=== PATIENT | female | born 1980 | race African-American/Black ===

== ENCOUNTER 2017-04-04 18:31 | Emergency (ER) | payer BC ==
[2017-04-04 19:05] LABS: Bilirubin Negative (Negative); Blood, Urine Trace (Negative); Clarity Clear (Clear); Glucose, Urine (Dipstick) Negative (Negative); Leukocyte Negative (Negative); Nitrite Negative (Negative); Protein, Urine (Dipstick) Negative (Neg-Trace); Urobilinogen 0.2 mg/dL (0.2-1.0); pH, Urine 6.5 (5.0-9.0)
[2017-04-04 19:08] LABS: Bacteria/HPF Rare-Few HPF (None Seen); RBC/HPF 0-3 HPF (0-3); WBC/HPF None Seen HPF (0-3)
[2017-04-04] MEDS ORDERED: Azithromycin 250 MG TAB ONE (21:11)
[2017-04-04] MEDS ORDERED: cefTRIAXone\\ROCEPHIN 250 MG VIAL ONE (21:11)
[2017-04-05 22:58] LABS: Chlamydia by PCR Not Detected (NotDetected); GC by PCR Not Detected (NotDetected)
== END 2017-04-04 21:40 | disposition home or self-care (01) ==
LOC: SCSER 18:31
DX: N72 Inflammatory disease of cervix uteri (principal); G43.909 Migraine, unspecified, not intractable, without status migrainosus; J45.909 Unspecified asthma, uncomplicated; F17.210 Nicotine dependence, cigarettes, uncomplicated
CPT/HCPCS: 81003; 81015; 87480; 87491; 87510; 87591; 87660; 96372; 99406; J0696

== ENCOUNTER 2017-04-12 08:26 | Emergency (ER) | payer BC ==
[2017-04-12] MEDS ORDERED: Acetaminophen 500 MG TAB ONE (09:47)
[2017-04-12] MEDS ORDERED: Ibuprofen 800 MG TAB ONE (09:47)
== END 2017-04-12 09:55 | disposition home or self-care (01) ==
LOC: ERS 08:26
DX: J11.1 Influenza due to unidentified influenza virus with other respiratory manifestations (principal); G43.909 Migraine, unspecified, not intractable, without status migrainosus; F17.210 Nicotine dependence, cigarettes, uncomplicated; J45.909 Unspecified asthma, uncomplicated
CPT/HCPCS: 99283

== ENCOUNTER 2017-08-29 13:30 | Emergency (ER) | payer BC ==
[2017-08-31 23:44] LABS: Chlamydia by PCR Not Detected (NotDetected); GC by PCR Not Detected (NotDetected)
== END 2017-08-29 14:07 | disposition home or self-care (01) ==
LOC: SCSER 13:30
DX: N32.81 Overactive bladder (principal); I10 Essential (primary) hypertension; G43.909 Migraine, unspecified, not intractable, without status migrainosus; J45.909 Unspecified asthma, uncomplicated; F17.210 Nicotine dependence, cigarettes, uncomplicated
CPT/HCPCS: 87086; 87491; 87591; 99284

== ENCOUNTER 2017-12-01 18:25 | Emergency (ER) | payer BC ==
[2017-12-01] MEDS ORDERED: Dexamethasone 10 MG/ML VIAL ONE (18:41)
== END 2017-12-01 18:52 | disposition home or self-care (01) ==
LOC: ERS 18:25
DX: J02.9 Acute pharyngitis, unspecified (principal); J45.909 Unspecified asthma, uncomplicated; I10 Essential (primary) hypertension; G43.909 Migraine, unspecified, not intractable, without status migrainosus; F17.210 Nicotine dependence, cigarettes, uncomplicated; Z79.899 Other long term (current) drug therapy
CPT/HCPCS: 99282; J1100

== ENCOUNTER 2017-12-03 09:43 | Inpatient (IN) | payer BC ==
[2017-12-03] MEDS ORDERED: cefTRIAXone\\ROCEPHIN 1 GM VIAL ONE (10:22)
[2017-12-03] MEDS ORDERED: Morphine 4 MG/ML VIAL ONE (10:22)
[2017-12-03] MEDS ORDERED: Ketorolac Tromethamine 30 MG/ML VIAL ONE (10:22)
[2017-12-03] MEDS ORDERED: ISOVUE-370 76%-LOCM 1 ML ONE (10:44)
--- NOTE | 2017-12-03 12:07 | CT ---
CONTRAST ENHANCED CT SOFT TISSUE NECK: HISTORY: Left-sided throat soreness for one week. TECHNIQUE: Contrast enhanced CT images of the soft tissue neck are obtained. IV contrast was given. FINDINGS: CT images demonstrate a peripherally enhancing, approximately 19 mm in diameter lesion with an associ ated area of calcification. This is most compatible with a left submandibular sialolith, diameter me asuring approximately 8 mm with a circumferentially enhancing, likely left submandibular abscess. Th ere is some atrophy involving the left submandibular gland. I suspect this sialolith is resulting in some left submandibular gland atrophy. No significant evidence of lymphadenopathy is seen. Some heterogeneity is seen in the right and left thyroid lobes. Correlate with elective sonography. There is mild medial deviation of the right true vocal cord. This may be positional or may represent a right vocal cord lesion as well. Correlate with direct visualization. IMPRESSION: 1. Left submandibular sialolith with a surrounding area of fluid density with a peripheral rim of en hancement, most compatible with a secondary abscess involving the left submandibular gland. 2. Heterogeneity noted in the thyroid gland. 3. Possible mildly medially deviating right vocal cord. POS: [facility]
[2017-12-03] MEDS ORDERED: Dexamethasone 10 MG/ML VIAL ONE (12:32)
[2017-12-03] MEDS ORDERED: Clindamycin/D5W 900 mg/50 ml Premix Bag ONE (12:32)
[2017-12-03] MEDS ORDERED: hydrALAZINE 20 MG/ML VIAL SLOW IVP PRN (13:58)
[2017-12-03] MEDS ORDERED: Mag-Al 1200 mg/1200 mg/30 ML UDCUP PO PRN (13:58)
[2017-12-03] MEDS ORDERED: Ondansetron ODT 4 MG TAB PO PRN (13:58)
[2017-12-03] MEDS ORDERED: Ondansetron HCl/PF 4 MG/2 ML Vial IVP PRN (13:58)
[2017-12-03] MEDS ORDERED: traMADol HCl 50 MG TAB PO PRN ×2 (13:58→16:46)
--- NOTE | 2017-12-03 14:02 | HP ---
PRIMARY CARE PHYSICIAN: Dr. Roca. CHIEF COMPLAINT: Throat irritation and pain. HISTORY OF PRESENT ILLNESS: Ms. Rizvi is a pleasant 37-year-old female that has a history of hypertens ion, history of migraine headaches and iritis. She was in her usual state of health until about a we ek ago when she said she started having cold-like symptoms and says that her throat was a bit irritat ed. She was also having pain in her ears and nose as well. This got progressively worse to the poin t where she could barely swallow and her throat was extremely painful especially underneath her chin. She also says the right side of her neck is hurting too. For this reason, she came to the ER and w as evaluated. CT scan of the neck, soft tissues showed evidence of a submandibular sialolith with an area of surrounding fluid density compatible with a left submandibular abscess around the gland and some possible mild deviation of the right vocal cord. For this reason, she is being admitted and ENT is to consult. The patient denies having any fevers, no chills, no night sweats or weight loss or a ny symptoms such as this. She says that something did happen like this several years ago back in [facility] re she had a severely swollen gland and it was on the same side. She says it encompassed her whole s marcel of her face and her lip and she believes it was due to a salivary gland stone. At that time, she was recommended to have the stone removed, but she did not go and have it done at that time. She de nies any chest pain and she is able to swallow her own saliva, but she says it is a bit painful. REVIEW OF SYSTEMS: All systems were reviewed and are negative except for that mentioned in history o f present illness. PAST MEDICAL HISTORY: Significant for hypertension, iritis, migraine headaches and asthma. PAST SURGICAL HISTORY: She has had a right ACL repair, bilateral tubal ligation as well as a right s houlder surgery. ALLERGIES: TRAMADOL and VICODIN. SOCIAL HISTORY: She is a smoker of 5-6 cigarettes a day. She drinks socially. She is single, has 4 children. 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 FAMILY HISTORY: Significant for cancer, hypertension and diabetes mellitus. MEDICATIONS: Include metoprolol extended release 50 mg daily, Maxzide 37.5/25 daily, Naprosyn 500 mg twice a day. PHYSICAL EXAMINATION: GENERAL: She is alert and oriented. She appears to be in some distress due to pain. She is well-de veloped and well-nourished. VITAL SIGNS: Blood pressure was 123/92, heart rate 110, respiratory rate of 18, temperature is 98.5. HEENT: Pupils are equal, round, and reactive. Extraocular muscles are intact. Sclerae are anicteri c. She did have some conjunctival injection on the right sclerae. Throat: There is no erythema, no exudates. No bulging in the palate. The uvula was midline. She did have exquisite tenderness in t he left mandibular area with an area of a nodule or bulge which was firm, very tender, but nonfluctua nt. There was no stridor and no appreciable supraclavicular adenopathy. LUNGS: Clear to auscultation. There is no wheezing, no rales, no rhonchi. CARDIOVASCULAR: She had a normal S1 and S2. No S3 or S4. No murmurs, clicks, no rubs. ABDOMEN: Soft, it is nontender, nondistended. Positive for bowel sounds. There is no rebound, no g uarding. EXTREMITIES: No clubbing, cyanosis, no edema. NEUROLOGIC: Neurologically, the exam is grossly nonfocal with her muscle strength and 5/5 in both he r upper and lower extremities. Cranial nerves are intact. SKIN/INTEGUMENT: No skin changes. No rash. MUSCULOSKELETAL: There are no muscle pains or joint pains or crepitus. IMAGING DATA: CT scan was significant for findings associated with sialolith and some surrounding ab scess. ASSESSMENT AND PLAN: 1. This is a pleasant 37-year-old female who presents to the hospital with severe submandibular pain . She was found to have a sialolith with abscess. She will be admitted to the medical/surgical floo r, started on IV antibiotics as well as IV medications for pain including IV opioid medications, IV f luids and additional IV dose of steroids. ENT will be consulted for further recommendations. 2. Hypertension. We will hold her usual antihypertensive and place her on IV hydralazine as needed. 3. Deep venous thrombosis prophylaxis will be provided with SCDs as the patient is under 50 and ambu latory.
[2017-12-03] MEDS: Ketorolac Tromethamine 30 MG/ML VIAL IVP PRN (15:21)
[2017-12-03] MEDS: Sodium Chloride 0.9% 1,000 ML IV SCH ×2 (15:24→23:28)
[2017-12-03] MEDS: Morphine 2 MG/ML SYRINGE SLOW IVP PRN ×3 (15:26→23:28)
[2017-12-03 15:38] VITALS: BMI 31.0
[2017-12-03] MEDS: Acetaminophen 325 MG TAB PO PRN (17:00)
[2017-12-03] MEDS: Clindamycin/D5W 600 MG in Premix Bag 1 BAG IVPB SCH ×2 (17:00→23:28)
--- NOTE | 2017-12-03 18:48 | CON ---
DATE OF CONSULTATION: 12/03/2017 CONSULTING PHYSICIAN: Dr. Valle. REASON FOR CONSULTATION: Left submaxillary gland abscess, sialadenitis and sialolithiasis. HISTORY OF PRESENT ILLNESS: Ms. Rizvi is a 37-year-old female who has had about a week's histo ry of progressively worsening swelling and pain in the left side of her jaw and upper neck area. She has had a previous problem about 5 years ago and had recommendation of the submaxillary gland remova l after treatment with antibiotics and improved. She opted not to pursue that and now is having prob lems again. She does not really note anything that brought it on that. She had an upper respiratory tract infection around the time it began. She has not had any dental problems. She is having some pain going up referring up into her ear and her left cheek as well as her mouth and teeth. She has d ifficulty opening her mouth completely. No other complaints at this time. PAST MEDICAL HISTORY: Please see her H&P for further details for past medical history and review of systems reviewed on this date. ALLERGIES: She is allergic to HYDROCODONE. PHYSICAL EXAMINATION: GENERAL: Well-developed, well-nourished white female in mild distress. HEAD: Normocephalic, atraumatic. EYES: Pupils are equal, round, react to light. Extraocular movements are intact. EARS: Tympanic membranes are intact, mobile, clear. No signs of any fluid or infection noted. NOSE: Mucosa looks pink and healthy. No signs of any purulent drainage or infection. No polyps or masses noted. ORAL CAVITY AND OROPHARYNX: Shows some mild trismus. Teeth appear to be in good repair. Mucosa loo ks pink and healthy. I do not see any pus coming out of the Montgomery's duct. I do not see any mucosa l lesions or ulcerations. No exudate or erythema is noted. There is a mild swelling of the left bibi or of mouth area, but is soft and no palpable mass was noted. No fluctuance was noted and does not a ppear to be indurated. NECK: Shows some enlargement and tenderness and firmness of the left submaxillary gland, but no othe r significant lymphadenopathy or masses were noted. Thyroid is palpably normal. LUNGS: Clear to auscultation. HEART: Regular rate and rhythm without murmur or gallop. NEUROLOGIC: Cranial nerves III-XII are intact. IMAGING DATA: On CT scan, there is an obvious stone in the left submaxillary gland duct and there ap pears to be a small abscess around it probably blockage of the submaxillary duct causing the small ab scess. This is in the posterior aspect of the floor of mouth and there is some inflammation and swel ling of the left submaxillary gland. IMPRESSION: Left sialoadenitis and sialolithiasis with a small abscess of the submaxillary gland. PLAN: At this point in time, I recommended aggressive treatment with antibiotics so agree with the c lindamycin and Decadron to reduce swelling, warm compresses and sialagogue to see if it will resolve with medications. If not, may have to consider I&D of the abscess area, but is not readily visible a s far as where to I&D done on today's exam. Certainly if her symptoms seems to be getting worse and not improving, we will have to consider taking to the OR and I&D'ing it. Recommend removal of saliva ry gland, we will further remove it after the infection has resolved and inflammation has settled gabrielle n in the future.
[2017-12-03] MEDS: Dexamethasone 4 mg/ml Vial SLOW IVP SCH (21:18)
[2017-12-04 06:12] LABS: Anion Gap 13 mmol/L (10-20); BUN (Urea Nitrogen) 9 mg/dL (7.0-18.7); Calc. Creatinine Clearance 133 mL/min (70-130); Calcium 8.2 mg/dL (7.8-10.44); Carbon Dioxide 21 mmol/L (22-29); Chloride 108 mmol/L (98-107); Estimated GFR-MDRD Greater than 90; Glucose 119 mg/dL (70-105); Potassium 3.9 mmol/L (3.5-5.1); Sodium 138 mmol/L (136-145)
[2017-12-04] MEDS: Clindamycin/D5W 600 MG in Premix Bag 1 BAG IVPB SCH ×3 (06:17→18:22)
[2017-12-04 06:53] LABS: #Lymphocytes 1.1 thou/uL (1.20-3.40); #Monocytes 0.8 thou/uL (0.11-0.59); #Neutrophils 12.9 thou/uL (1.40-6.50); %Basophils 0.1 % (0.0-1.0); %Eosinophils 0.2 % (0.0-10.0); %Lymphocytes 7.3 % (21.0-51.0); %Monocytes 5.3 % (0.0-10.0); Hemoglobin 10.3 g/dL (12.0-16.0); MDiff Complete? YES; Macrocytosis SLIGHT = 6-15 cells (100X) (0-5/hpf); Mean Corpuscular HGB CONC 32.6 g/dL (32.0-36.0); Mean Corpuscular Hemoglobin 34.9 pg (27.0-31.0); Mean Platelet Volume 8.3 fL (7.4-10.4); Platelet Count 300 thou/uL (130-400); RBC Distribution Width 11.9 % (11.5-14.5); Red Blood Cell (RBC) Count 2.94 mill/uL (4.20-5.40); White Blood Cell (WBC) Count 14.8 thou/uL (4.8-10.8)
[2017-12-04] MEDS: Ketorolac Tromethamine 30 MG/ML VIAL IVP PRN ×2 (08:49→18:26)
[2017-12-04] MEDS: Dexamethasone 4 mg/ml Vial SLOW IVP SCH ×2 (08:50→21:21)
[2017-12-04] MEDS: Morphine 2 MG/ML SYRINGE SLOW IVP PRN (09:17)
--- NOTE | 2017-12-04 10:23 | PDOC.PN ---
- Subjective Encounter Start Date: 12/04/17 Encounter Start Time: 11:27 CC: Facial swelling sub: pt c/o facial pain - Objective Resuscitation Status: Resuscitation Status FULL:Full Resuscitation Vital Signs & Weight: Vital Signs (12 hours) Temp Pulse Resp BP Pulse Ox 12/04/17 07:35 98.0 F 71 16 127/85 98 12/04/17 04:08 98.3 F 69 17 111/75 97 12/04/17 00:11 98 F 62 19 121/83 98 Weight Weight 169 lb 14.4 oz I&O: 12/03/17 12/04/17 12/05/17 06:59 06:59 06:59 Intake Total 2380 Balance 2380 Result Diagrams: 12/04/17 05:08 12/04/17 05:08 Phys Exam - Physical Examination Constitutional: NAD HEENT: moist MMs left side face positive for swelling Neck: no JVD Respiratory: no wheezing, no rales, no rhonchi Cardiovascular: RRR, no significant murmur, no rub Gastrointestinal: soft, non-tender, positive bowel sounds no guarding, no rebound tenderness Musculoskeletal: no edema Neurological: non-focal, moves all 4 limbs Psychiatric: normal affect Skin: no rash Dx/Plan - Plan * . Left sialoadenitis Left sialolithiasiss & abscess Pain SIRS Plan: continue iv clindamycin and dexamethason ENT on board. Possible I&D PRN pain meds Monitor respiratory status closely Will repeat CBC in am case d/w pt & RN
[2017-12-04] MEDS: Sodium Bicarbonate 30 GM TOP SCH ×3 (13:17→21:30)
[2017-12-04] MEDS: Sodium Chloride 30 GM SSP SCH ×3 (13:17→21:31)
[2017-12-04] MEDS: Sodium Chloride 0.9% 1,000 ML IV SCH (17:16)
[2017-12-05] MEDS: Clindamycin/D5W 600 MG in Premix Bag 1 BAG IVPB SCH ×4 (01:02→17:33)
[2017-12-05] MEDS: Acetaminophen 325 MG TAB PO PRN (01:49)
[2017-12-05] MEDS: Sodium Chloride 0.9% 1,000 ML IV SCH ×3 (03:03→17:33)
[2017-12-05] MEDS: Morphine 2 MG/ML SYRINGE SLOW IVP PRN ×4 (03:08→21:51)
[2017-12-05] MEDS: Dexamethasone 4 mg/ml Vial SLOW IVP SCH ×2 (09:19→21:52)
[2017-12-05] MEDS: Sodium Bicarbonate 30 GM TOP SCH ×4 (10:08→21:52)
[2017-12-05] MEDS: Sodium Chloride 30 GM SSP SCH ×4 (10:09→21:52)
[2017-12-05] MEDS: Ketorolac Tromethamine 30 MG/ML VIAL IVP PRN (12:40)
--- NOTE | 2017-12-05 13:42 | PDOC.PN ---
- Subjective Encounter Start Date: 12/05/17 Encounter Start Time: 11:50 -: old records requested/rev Pt seen and examined, chart reviewed in its entirety, this is my first visit with this patient Follow up for sialdenitis, sialalithiasis. abscess spontaneously rupture,cx sent by ENT. GPC in prs chains and clustgers seen, growth report pending pain better, not eating much yet due to trismus. No F/C, no N/V/d/C, araceli IV Clinda left facial swelling virtually gone. All systems reviewed and neg for all systems except as stated above - Objective Resuscitation Status: Resuscitation Status FULL:Full Resuscitation MAR Reviewed: Yes Vital Signs & Weight: Vital Signs (12 hours) Temp Pulse Resp BP Pulse Ox 12/05/17 12:13 98.2 F 63 15 145/96 H 97 12/05/17 08:18 98.1 F 64 14 132/86 97 12/05/17 08:00 97 12/05/17 04:00 98.3 F 69 16 128/81 97 Weight Weight 169 lb 14.4 oz I&O: 12/04/17 12/05/17 12/06/17 06:59 06:59 06:59 Intake Total 2380 Balance 2380 Result Diagrams: 12/04/17 05:08 12/04/17 05:08 Radiology Reviewed by me: Yes EKG Reviewed by me: Yes Phys Exam - Physical Examination Constitutional: NAD HEENT: PERRLA, moist MMs, sclera anicteric left buccal mucosa swollen, posterior rupture stable Neck: no nodes, no JVD, supple, full ROM Respiratory: no wheezing, no rales, no rhonchi, clear to auscultation bilateral Cardiovascular: RRR, no significant murmur, no rub Gastrointestinal: soft, non-tender, no distention, positive bowel sounds Musculoskeletal: no edema, pulses present Neurological: non-focal, normal sensation, moves all 4 limbs Lymphatic: no nodes Psychiatric: normal affect, A&O x 3 Skin: no rash, normal turgor, cap refill <2 seconds Dx/Plan (1) Sialadenitis Code(s): K11.20 - SIALOADENITIS, UNSPECIFIED Status: Acute (2) Sialolithiasis Code(s): K11.5 - SIALOLITHIASIS Status: Acute (3) Abscess Code(s): L02.91 - CUTANEOUS ABSCESS, UNSPECIFIED Status: Acute (4) HTN (hypertension) Code(s): I10 - ESSENTIAL (PRIMARY) HYPERTENSION Status: Chronic Qualifiers: Hypertension type: essential hypertension Qualified Code(s): I10 - Essential (primary) hypertension - Plan cont current plan of care, continue antibiotics, out of bed/ambulate * . home in 1-2 days pending cx and ENT clearance
[2017-12-05] MEDS ORDERED: Polyethylene Glycol 3350 17 GM Packet PO SCH (17:15)
[2017-12-06] MEDS: Clindamycin/D5W 600 MG in Premix Bag 1 BAG IVPB SCH ×5 (00:18→23:42)
[2017-12-06 05:45] LABS: Anion Gap 6 mmol/L (10-20); BUN (Urea Nitrogen) 8 mg/dL (7.0-18.7); Calc. Creatinine Clearance 133 mL/min (70-130); Calcium 8.3 mg/dL (7.8-10.44); Carbon Dioxide 27 mmol/L (22-29); Chloride 107 mmol/L (98-107); Estimated GFR-MDRD Greater than 90; Glucose 112 mg/dL (70-105); Magnesium 1.9 mg/dL (1.6-2.6); Sodium 136 mmol/L (136-145)
[2017-12-06] MEDS: Sodium Chloride 0.9% 1,000 ML IV SCH ×4 (05:59→23:42)
[2017-12-06 06:00] LABS: #Lymphocytes 1.8 thou/uL (1.20-3.40); #Monocytes 0.7 thou/uL (0.11-0.59); #Neutrophils 6.7 thou/uL (1.40-6.50); %Basophils 0.1 % (0.0-1.0); %Eosinophils 0.2 % (0.0-10.0); %Lymphocytes 19.2 % (21.0-51.0); %Monocytes 7.5 % (0.0-10.0); Hemoglobin 10.7 g/dL (12.0-16.0); Mean Corpuscular HGB CONC 32.9 g/dL (32.0-36.0); Mean Corpuscular Hemoglobin 34.8 pg (27.0-31.0); Mean Platelet Volume 8.2 fL (7.4-10.4); Platelet Count 364 thou/uL (130-400); Red Blood Cell (RBC) Count 3.08 mill/uL (4.20-5.40); White Blood Cell (WBC) Count 9.1 thou/uL (4.8-10.8)
[2017-12-06] MEDS: Polyethylene Glycol 3350 17 GM Packet PO SCH (08:56)
[2017-12-06] MEDS: Dexamethasone 4 mg/ml Vial SLOW IVP SCH ×2 (08:56→20:28)
[2017-12-06] MEDS: Sodium Chloride 30 GM SSP SCH ×4 (09:09→20:32)
[2017-12-06] MEDS: Sodium Bicarbonate 30 GM TOP SCH ×4 (09:09→20:32)
[2017-12-06] MEDS: Morphine 2 MG/ML SYRINGE SLOW IVP PRN ×2 (12:43→22:11)
--- NOTE | 2017-12-06 14:41 | PDOC.PN ---
- Subjective Encounter Start Date: 12/06/17 Encounter Start Time: 10:00 follow up for sialadenitis, sialalithiasis, abscess S/P spontaneous rupture. No F/C, no N/V/D/C, no CP or SOB, araceli po, but pain with chewing no note from ENT since 12/04, will reach out to them today - Objective Resuscitation Status: Resuscitation Status FULL:Full Resuscitation MAR Reviewed: Yes Vital Signs & Weight: Vital Signs (12 hours) Temp Pulse Resp BP Pulse Ox 12/06/17 12:00 99 12/06/17 08:00 98 12/06/17 07:14 98.5 F 66 18 118/71 98 12/06/17 04:00 98.2 F 71 16 135/88 98 Weight Weight 169 lb 14.4 oz I&O: 12/05/17 12/06/17 12/07/17 06:59 06:59 06:59 Intake Total 1860 Balance 1860 Result Diagrams: 12/06/17 04:59 12/06/17 04:59 Phys Exam - Physical Examination Constitutional: NAD HEENT: PERRLA, moist MMs, sclera anicteric, oral pharynx no lesions Neck: no nodes, no JVD, supple, full ROM Respiratory: no wheezing, no rales, no rhonchi, clear to auscultation bilateral Cardiovascular: RRR, no significant murmur, no rub Gastrointestinal: soft, non-tender, no distention, positive bowel sounds Musculoskeletal: no edema Neurological: non-focal, normal sensation, moves all 4 limbs Lymphatic: no nodes Psychiatric: normal affect, A&O x 3 Skin: no rash, normal turgor, cap refill <2 seconds Dx/Plan (1) Sialadenitis Code(s): K11.20 - SIALOADENITIS, UNSPECIFIED Status: Acute (2) Sialolithiasis Code(s): K11.5 - SIALOLITHIASIS Status: Acute (3) Abscess Code(s): L02.91 - CUTANEOUS ABSCESS, UNSPECIFIED Status: Acute (4) HTN (hypertension) Code(s): I10 - ESSENTIAL (PRIMARY) HYPERTENSION Status: Chronic Qualifiers: Hypertension type: essential hypertension Qualified Code(s): I10 - Essential (primary) hypertension - Plan cont current plan of care, continue antibiotics, out of bed/ambulate * .
[2017-12-06] MEDS: Ketorolac Tromethamine 30 MG/ML VIAL IVP PRN (18:13)
[2017-12-07] MEDS: Clindamycin/D5W 600 MG in Premix Bag 1 BAG IVPB SCH (06:09)
[2017-12-07] MEDS: Polyethylene Glycol 3350 17 GM Packet PO SCH (08:16)
[2017-12-07] MEDS: Sodium Bicarbonate 30 GM TOP SCH (08:24)
[2017-12-07] MEDS: Dexamethasone 4 mg/ml Vial SLOW IVP SCH (08:24)
[2017-12-07] MEDS: Sodium Chloride 30 GM SSP SCH (08:25)
[2017-12-07] MEDS ORDERED: Triamterene/Hydrochlorothiazide 37.5 mg/25 mg Tablet PO SCH (09:00)
[2017-12-07 12:08] VITALS: BP 145/98; TEMP 98.4
--- NOTE | 2017-12-07 12:27 | DIS ---
DATE OF ADMISSION: 12/03/2017 DATE OF DISCHARGE: 12/07/2017 PRIMARY CARE PHYSICIAN: García Roca M.D. DISCHARGE DIAGNOSES: 1. Left submandibular sialadenitis. 2. Left submandibular sialolithiasis. 3. Obstructed salivary duct. 4. Abscess of the left submandibular gland. 5. Odynophagia. 6. Systemic inflammatory response syndrome without sepsis. 7. Essential hypertension. CONSULTATION: ENT initially seen by Dr. White. Follow up with Dr. Santiago. PROCEDURES: None. HISTORY AND PHYSICAL: Ms. Rizvi is a 37-year-old female who [facility] presented to [facility], with sore throat and was sent home. She developed increased pain, swelling, and difficulty swallowing secondary to pain, so came back to the emergency department on 12/03/2017. Workup showed an enlarged submandibular gland, CT scan showed abscess and we were subsequently called for admission. HOSPITAL COURSE: The patient was seen and examined by Dr. Valle and placed in inpatient status. St miranda on clindamycin. ENT was consulted. Dr. Filipe White saw the patient. He recommended close observation. Overnight 12/03/2017 to 12/04/2017, the patient had spontaneous rupture of the abscess and drainage. A culture was obtained that showed normal oral andria. The patient remained afebrile and pain markedly improved on Decadron and clindamycin. ENT came back to visit the patient on 12/07/2017 and all the swelling had virtually resolved. There is still some trismus and pain with mastication, however, was markedly improved and tolerated with Toradol. The patient was transitioned to oral antibiotics and was stable for discharge with outpatient followu p. PHYSICAL EXAMINATION: The patient was seen and examined on the day of discharge. Discharge plan and disposition was discussed with the patient face to face at the bedside. DISCHARGE MEDICATIONS: New medications, 1. Augmentin 875/125 one p.o. b.i.d. 2. Zofran 4 mg p.o. q.6 hours p.r.n., prescription sent. 3. MiraLax 17 grams daily. MEDICATIONS TO CONTINUE. 1. Maxzide 37.5/25 one p.o. q.a.m. 2. Toprol-XL 50 mg p.o. q.p.m. 3. Motrin/ibuprofen 800 mg p.o. t.i.d. with food p.r.n. pain. FOLLOWUP APPOINTMENTS: 1. Primary care physician in [address] Caden Santiago per his clinic. DISCHARGE CONDITION: Stable. DISPOSITION: Discharged home via private vehicle. DISCHARGE DIET: Heart healthy, but otherwise no restrictions. DISCHARGE ACTIVITY: As tolerated.
== END 2017-12-07 12:40 | disposition home or self-care (01) | DRG 158 ==
LOC: ERS 09:43 → SJJU 15:03
PROVIDERS: ADMIT Internal Medicine; ATTEND Internal Medicine
DX: K12.2 Cellulitis and abscess of mouth (principal); R65.10 Systemic inflammatory response syndrome (SIRS) of non-infectious origin without acute organ dysfunction; I10 Essential (primary) hypertension; F17.210 Nicotine dependence, cigarettes, uncomplicated; K11.20 Sialoadenitis, unspecified; K11.5 Sialolithiasis; K11.8 Other diseases of salivary glands; R13.10 Dysphagia, unspecified
CPT/HCPCS: 36415; 70491; 80048; 83735; 85025; 87070; 87205; 99282; J0696; J1100; J1885; J2270; J3490; Q0162

== ENCOUNTER 2017-12-14 07:06 | Day surgery (SDC) | payer BC ==
[2017-12-13 12:49] VITALS: BMI 28.9
[2017-12-14] MEDS ORDERED: Midazolam HCl 2 mg/2 ml Vial ONE (08:32)
[2017-12-14] MEDS ORDERED: Lidocaine 1% w/Epinephrine 1:100K 30 ML VIAL ONE (08:36)
[2017-12-14] MEDS ORDERED: Fentanyl 100 MCG/2 ML VIAL ONE ×4 (08:41→11:01)
[2017-12-14] MEDS ORDERED: Labetalol HCl 100 MG/20 ML VIAL ONE (10:58)
[2017-12-14] MEDS ORDERED: Labetalol HCl 100 MG/20 ML VIAL SLOW IVP SCH (11:00)
[2017-12-14] MEDS ORDERED: Morphine 4 MG/ML VIAL ONE (11:12)
[2017-12-14] MEDS ORDERED: Hydrocodone-Acetamin 15 ML UDCUP ONE (12:07)
[2017-12-14] MEDS ORDERED: diphenhydrAMINE 50 MG/ML VIAL ONE (12:20)
[2017-12-14] MEDS ORDERED: Dexamethasone 20 MG/5 ML VIAL ONE (17:25)
[2017-12-14] MEDS ORDERED: Lidocaine 1% PF 5 ML VIAL ONE (17:25)
[2017-12-14] MEDS ORDERED: PHENYLEPHRINE-NS 100 MCG/ML 10 ML SYRINGE ONE (17:25)
[2017-12-14] MEDS ORDERED: Succinylcholine Chloride 20 MG/ML 10 ml SYRINGE FS ONE (17:25)
[2017-12-14] MEDS ORDERED: Ondansetron HCl/PF 4 MG/2 ML Vial ONE (17:25)
[2017-12-14] MEDS ORDERED: PROPOFOL 200 MG/20 ML VIAL ONE (17:25)
--- NOTE | 2017-12-15 12:44 | OP ---
DATE OF PROCEDURE: 12/14/2017 PREOPERATIVE DIAGNOSIS: Left submandibular gland sialadenitis. POSTOPERATIVE DIAGNOSIS: Left submandibular gland sialadenitis. PROCEDURES: Excision of left submandibular gland. SURGEON: Dr. Caden Santiago. ESTIMATED BLOOD LOSS: 20 mL. COMPLICATIONS: None. ANESTHESIA: GETA. PROCEDURE IN DETAIL: The patient was taken to the operating room and placed supine on the table. Ge neral endotracheal anesthesia was obtained by the Anesthesia staff. Tube was secured in the right lo wer lip. Shoulder roll was placed and the patient was gently extended exposing the left submandibula r gland area. Following this, 8 mL of 1% lidocaine with 1:100,000 epinephrine was injected into the anticipated incision. Following this, the patient was prepped and draped in standard surgical fashio n. Incision was made staying 2 cm below the angle of the mandible with a 15 blade through skin and s ubcutaneous tissue and the platysmal layer. Following this, subplatysmal flaps were elevated superio rly. The marginal mandibular nerve was identified and was elevated superiorly and was retracted as w ell. Following this, the facial artery and vein were suture ligated. The gland was then identified and was freed inferiorly from its attachments around the digastric muscle. The hypoglossal nerve was identified. The gland was then grasped with an Allis clamp and was displaced inferiorly. Dissectio n was carried onto the submandibular gland capsule until the lingual nerve was identified. The postg anglionic nerve fibers coming from the lingual nerve were then suture ligated adjacent to the gland . Following this, a right-angle clamp was then placed on the distal most portion of the submandibula r duct and the duct was suture ligated. Following this, the gland was removed. Hemostasis was obtai damon. A drain was placed. The platysmal layer was then closed using 4-0 Monocryl stitches and the paulino bcuticular layer was closed using 4-0 Monocryl. Dermabond was placed on the skin. The patient hussain ated the procedure well.
== END 2017-12-14 12:45 | disposition home or self-care (01) ==
LOC: SDC 07:06
PROVIDERS: ATTEND Otolaryngology Plastic Surgery within the Head & Neck
PROC: 0CBH0ZZ Excision of Left Submaxillary Gland, Open Approach (ICD-10-PCS; principal; 2017-12-14)
DX: K11.23 Chronic sialoadenitis (principal); I10 Essential (primary) hypertension; J45.909 Unspecified asthma, uncomplicated; Z79.899 Other long term (current) drug therapy
CPT/HCPCS: 88307; 93005; 93010; 96374; J1100; J1200; J2001; J2250; J2270; J2405; J2704; J3010

== ENCOUNTER 2018-09-15 18:40 | Emergency (ER) | payer BC ==
[2018-09-15 20:00] LABS: Bilirubin Negative (Negative); Blood, Urine Negative (Negative); Clarity Clear (Clear); Glucose, Urine (Dipstick) Normal (Negative); Leukocyte Negative Leu/uL (Negative); Nitrite Negative (Negative); Protein, Urine (Dipstick) Negative (Neg-Trace); Urobilinogen Normal mg/dL (Less than 2)
[2018-09-15 20:05] LABS: Pregnancy Test - Urine (BHCG) Negative (Negative); Pregu Control Background? CLEAR/WHITE (CLR/WHITE); Pregu Control Bar Appear? YES (CONTROL BAR); Specific Gravity 1.009 (1.002-1.036)
[2018-09-15 20:11] LABS: #Basophils 0.1 thou/uL (0.0-0.2); #Eosinphils 0.1 thou/uL (0.0-0.7); #Lymphocytes 2.6 thou/uL (1.20-3.40); #Monocytes 0.6 thou/uL (0.11-0.59); #Neutrophils 3.9 thou/uL (1.40-6.50); %Basophils 1.1 % (0.0-1.0); %Eosinophils 1.7 % (0.0-10.0); %Lymphocytes 35.7 % (21.0-51.0); %Monocytes 7.9 % (0.0-10.0); %Neutrophils 53.6 % (42.0-75.0); Hemoglobin 11.9 g/dL (12.0-16.0); Mean Corpuscular HGB CONC 32.4 g/dL (32.0-36.0); Mean Corpuscular Hemoglobin 33.5 pg (27.0-31.0); Platelet Count 359 thou/uL (130-400); Red Blood Cell (RBC) Count 3.54 mill/uL (4.20-5.40); White Blood Cell (WBC) Count 7.4 thou/uL (4.8-10.8)
[2018-09-15 20:31] LABS: ALT (SGPT) 21 U/L (8-55); AST (SGOT) 18 U/L (5-34); Albumin 3.8 g/dL (3.5-5.0); Alkaline Phosphatase 116 U/L (40-150); Anion Gap 12 mmol/L (10-20); BUN (Urea Nitrogen) 10 mg/dL (7.0-18.7); Bilirubin, Total 0.3 mg/dL (0.2-1.2); Calc. Creatinine Clearance 0 mL/min (70-130); Calcium 9.1 mg/dL (7.8-10.44); Carbon Dioxide 24 mmol/L (22-29); Chloride 107 mmol/L (98-107); Estimated GFR-MDRD 87; Globulin 3.1 g/dL (2.4-3.5); Glucose 100 mg/dL (70-105); Potassium 3.7 mmol/L (3.5-5.1); Protein, Total 6.9 g/dL (6.0-8.3); Sodium 139 mmol/L (136-145)
[2018-09-15] MEDS ORDERED: Ketorolac Tromethamine 60 MG/2 ML VIAL ONE (21:46)
[2018-09-15] MEDS ORDERED: Ondansetron ODT 4 MG TAB ONE (22:32)
[2018-09-15] MEDS ORDERED: Azithromycin 250 MG TAB ONE ×2 (22:32→22:34)
[2018-09-15] MEDS ORDERED: cefTRIAXone\\ROCEPHIN 250 MG VIAL ONE (22:32)
[2018-09-15] MEDS ORDERED: Lidocaine 1% PF 5 ML VIAL ONE (22:35)
[2018-09-20 00:37] LABS: Chlamydia by PCR DETECTED (NotDetected); GC by PCR Not Detected (NotDetected)
== END 2018-09-15 23:43 | disposition home or self-care (01) ==
LOC: ERS 18:40
DX: N76.0 Acute vaginitis (principal); G43.909 Migraine, unspecified, not intractable, without status migrainosus; J45.909 Unspecified asthma, uncomplicated; F17.210 Nicotine dependence, cigarettes, uncomplicated
CPT/HCPCS: 36415; 80053; 81003; 81025; 85025; 87480; 87491; 87510; 87591; 87660; 96372; 99284; J0696; J1885; J2001; Q0162

== ENCOUNTER 2019-03-03 12:19 | Emergency (ER) | payer BC ==
[2019-03-03 12:54] LABS: Bilirubin Negative (Negative); Blood, Urine 2+ (Negative); Clarity Turbid (Clear); Glucose, Urine (Dipstick) Normal (Negative); Leukocyte 500 Leu/uL (Negative); Nitrite Negative (Negative); Protein, Urine (Dipstick) 10 mg/dL (Neg-Trace); Squamous Epithelial 0-3 HPF (0-3); Urobilinogen Normal mg/dL (Less than 2); WBC/HPF Greater than 50 HPF (0-3)
[2019-03-03 12:57] LABS: Pregnancy Test - Urine (BHCG) Negative (Negative); Pregu Control Background? CLEAR/WHITE (CLR/WHITE); Pregu Control Bar Appear? YES (CONTROL BAR); Specific Gravity 1.005 (1.002-1.036)
[2019-03-03 13:02] LABS: Bacteria/HPF Rare-Few HPF (None Seen); Transitional Epithelial 0-3 HPF (None Seen)
[2019-03-03] MEDS ORDERED: Ketorolac Tromethamine 60 MG/2 ML VIAL ONE (13:22)
== END 2019-03-03 14:05 | disposition home or self-care (01) ==
LOC: ERS 12:19
DX: N39.0 Urinary tract infection, site not specified (principal); I10 Essential (primary) hypertension; G43.909 Migraine, unspecified, not intractable, without status migrainosus; J45.909 Unspecified asthma, uncomplicated; F17.210 Nicotine dependence, cigarettes, uncomplicated
CPT/HCPCS: 81003; 81015; 81025; 87077; 87086; 87186; 96372; 99284; J1885